=== PATIENT | male | born 1970 | race Caucasian/White ===

== ENCOUNTER 2018-11-24 21:06 | Inpatient (IN) | payer OTHER ==
[~2018-11-24] VITALS: Ht 165.1 cm; Wt 108.9 kg
[2018-11-24 21:31] VITALS: BP 147/83
[2018-11-24] MEDS ORDERED: Z GUARD REMEDY 2 OZ OINT TP PRN ×2 (22:00→22:30)
[2018-11-24] MEDS ORDERED: MAG HYDROX/AL HYDROX/SIMETH 30 ML UDC PO PRN (22:00)
[2018-11-24] MEDS ORDERED: ONDANSETRON HCL/PF 4 MG/2 ML VIAL IVP PRN (22:00)
[2018-11-24] MEDS ORDERED: MAGNESIUM HYDROXIDE 30 ML UDC PO PRN (22:00)
[2018-11-24] MEDS ORDERED: ACETAMINOPHEN 325 MG TABLET PO PRN (22:00)
[2018-11-24 22:38] LABS: BASOPHILS # (AUTO) 0.1 /CMM (0.0-0.2); BASOPHILS % (AUTO) 1.5 % (0.0-2.0); EOSINOPHILS % (AUTO) 1.5 % (0.0-6.0); HEMATOCRIT 50 % (39-51); HEMOGLOBIN 16.6 g/dL (13.5-17.5); LYMPHOCYTES # (AUTO) 1.9 /CMM (0.8-4.8); LYMPHOCYTES % (AUTO) 27.6 % (20.0-44.0); MEAN CORPUSCULAR HGB CONC 33 g/dl (31.0-36.0); MEAN CORPUSCULAR VOLUME 98 fL (80-96); MONOCYTES # (AUTO) 0.7 /CMM (0.1-1.30); MONOCYTES % (AUTO) 10.2 % (2.0-12.0); NEUTROPHILS # (AUTO) 4.1 /CMM (1.8-8.9); NEUTROPHILS % (AUTO) 59.2 % (43.0-81.0); PLATELET COUNT (AUTO) 164 /CMM (150-450); RED BLOOD CELL COUNT(AUTO) 5.07 MIL/uL (4.5-6.0)
--- NOTE | 2018-11-24 22:42 | NUR ---
CABLE TELEVISION LINE TECHNICIAN NOTES RECEIVED PT FROM EMT. A/O X 4. ON NASAL CANNULA 4LPM NO RESPIRATORY DISTRESS NOTED. IV ACCESS ON LAC G20 PATENT AND INTACT . BELONGING LIST CHECK DONE. SKIN ASSESSMENT DONE, PICTURE PLACED IN CHART. HEAD OF BED ELEVATED. SIDE RAILS UP. CALL LIGHT WITHIN REACH. BED ALARM ON. WILL CONTINUE TO MONITOR PT CLOSELY.
[2018-11-24 22:48] LABS: CREATININE 0.9 mg/dL (0.6-1.3); MAGNESIUM 1.6 mg/dL (1.8-2.4); PHOSPHORUS 3.1 mg/dL (2.5-4.9)
[2018-11-24] MEDS: CHLORDIAZEPOXIDE HCL 25 MG CAPSULE PO SCH (23:01)
[2018-11-24] MEDS: IV NS 0.9% 1,000 ML IV PRN (23:01)
[2018-11-24 23:04] LABS: POTASSIUM 2.8 mmol/L (3.5-5.1)
--- NOTE | 2018-11-24 23:47 | NUR ---
teletypist notes called pharmacy to verify orders.
[2018-11-24] MEDS: POTASSIUM CHLORIDE 20 MEQ TAB.PRT.SR PO SCH (23:58)
[2018-11-25] MEDS: Magnesium 1GM/D5W 100ML PREMIX 100 ML IV SCH ×2 (00:01→00:49)
[2018-11-25] MEDS: POTASSIUM CL. PREMIX PERIPHER. 50 ML IV SCH ×5 (00:02→03:33)
[2018-11-25 04:00] VITALS: BP 142/71
[2018-11-25 06:16] LABS: BASOPHILS # (AUTO) 0.1 /CMM (0.0-0.2); BASOPHILS % (AUTO) 1.3 % (0.0-2.0); EOSINOPHILS % (AUTO) 2.2 % (0.0-6.0); HEMATOCRIT 47 % (39-51); HEMOGLOBIN 15.6 g/dL (13.5-17.5); LYMPHOCYTES # (AUTO) 1.3 /CMM (0.8-4.8); MEAN CORPUSCULAR HGB CONC 33 g/dl (31.0-36.0); MEAN CORPUSCULAR VOLUME 100 fL (80-96); MONOCYTES # (AUTO) 0.6 /CMM (0.1-1.30); MONOCYTES % (AUTO) 10.6 % (2.0-12.0); NEUTROPHILS % (AUTO) 64.9 % (43.0-81.0); PLATELET COUNT (AUTO) 160 /CMM (150-450); WHITE BLOOD COUNT (AUTO) 6.1 K/uL (4.3-11.0)
[2018-11-25 06:38] LABS: CALCIUM, SERUM 9.3 mg/dL (8.5-10.1); CREATININE 0.8 mg/dL (0.6-1.3); MAGNESIUM 2.1 mg/dL (1.8-2.4); PHOSPHORUS 4.1 mg/dL (2.5-4.9); POTASSIUM 4.2 mmol/L (3.5-5.1)
--- NOTE | 2018-11-25 07:14 | NUR ---
HEALTH INFORMATION MANAGER NOTES NO ACUTE CHANGES NOTED DURING THE SHIFT. NO RESPIRATORY DISTRESS NOTED. PROVIDED COMFORT AND SAFETY. WILL ENDORSE TO THE AM NURSE FOR CONTINUITY OF CARE.
--- NOTE | 2018-11-25 07:30 | NUR ---
RN NOTE: RECEIVED PATIENT IN BED, AWAKE, ALERT AND VERBALLY RESPONSIVE. RESPIRATION EVEN AND UNLABORED SATURATING 98% IN ROOM AIR. PATIENT VERBALIZED THAT HE NEEDED TO HAVE HIS PAIN MEDICATION (CYMBALTA) AND BP MEDICATION. PATIENT WAS SEEN BY THE [facility] NURSE MICHAEL AND ALL THE HOME MEDICATIONS WERE LISTED ON THE PATIENT'S CHART. WILL INFORM THE ROUNDING DOCTOR ABOUT IT. BED ON LOWEST POSITION. ON FREQUENT NEUROLOGICAL CHECKS. AFEBRILE. SKIN WARM TO TOUCH. (L) AND (R) AC 20 G IV SITE WAS NOTED PATENT AND INTACT. (L) AC IV LINE WAS INFUSING NS @100ML/HR WITH GOOD BLOOD RETURN. ON SEIZURE PRECAUTION WITH PADDED SIDE RAIL. CALL LIGHT WITHIN REACH. NEEDS ANTICIPATED.
[2018-11-25] MEDS ORDERED: GABA-534 PO (07:46)
[2018-11-25] MEDS ORDERED: CYCL10TA9 PO (07:46)
[2018-11-25] MEDS ORDERED: HYDR25TA4 PO (07:46)
[2018-11-25] MEDS ORDERED: DULO60CA64 PO (07:46)
[2018-11-25] MEDS ORDERED: BUPR1FIL3 SL (07:46)
[2018-11-25 08:00] VITALS: BP 159/100
[2018-11-25] MEDS: PANTOPRAZOLE 40 MG TABLET.DR PO SCH (08:12)
[2018-11-25] MEDS: POTASSIUM CHLORIDE 20 MEQ TAB.PRT.SR PO SCH (08:12)
[2018-11-25] MEDS: CHLORDIAZEPOXIDE HCL 25 MG CAPSULE PO SCH ×2 (08:13→16:21)
[2018-11-25 08:30] VITALS: BP 139/93
[2018-11-25] MEDS ORDERED: THIAMINE HCL 100 MG TABLET PO SCH (09:00)
[2018-11-25] MEDS ORDERED: NICOTINE PATCH (21MG) 21 MG PATCH.TD24 TD SCH (09:00)
[2018-11-25] MEDS ORDERED: FOLIC ACID 1 MG TABLET PO SCH (09:00)
[2018-11-25] MEDS ORDERED: MULTIVITAMINS,THERAGRAN 1 UDTAB TABLET PO SCH (09:00)
--- NOTE | 2018-11-25 11:10 | NUR ---
RN NOTE: ALONDRA GUSTAFSON NP WAS PRESENT AT THE BEDSIDE AND SPOKE WITH THE PATIENT REGARDING THE PLAN OF CARE.
[2018-11-25 12:00] VITALS: BP 160/90
[2018-11-25] MEDS: IV NS 0.9% 1,000 ML IV PRN (12:22)
[2018-11-25] MEDS: HYDROCODONE/APAP 5/325MG 1 EACH TABLET PO PRN (12:41)
[2018-11-25] MEDS: CYCLOBENZAPRINE 10 MG TABLET PO PRN ×2 (14:12→22:13)
--- NOTE | 2018-11-25 15:34 | NUR ---
RN NOTE: CALLED AND SPOKE WITH ALONDRA GUSTAFSON NP REGARDING THE PATIENT'S DEMAND OF MORE PAIN MEDICATION. PATIENT GAVE A LIST OF ALL THE OTHER PAIN MEDICATION THAT HE TAKES AT HOME. PER ALONDRA GUSTAFSON NP HE ORDERED IBUPROFEN AND LIDOCAINE PATCH. ORDER NOTED AND CARRIED OUT. PATIENT MADE AWARE OF THE CURRENT ORDERS AND STILL UPSET.
--- NOTE | 2018-11-25 15:40 | NUR ---
RN NOTE: DISCUSSED WITH ALONDRA GUSTAFSON NP REGARDING THE PATIENT'S ELEVATED BLOOD PRESSURE AND PER POULTICE MACHINE OPERATOR, THE HYDRALAZINE FROM THE PATIENT'S HOME MEDICATION WAS HELD. PER POULTICE MACHINE OPERATOR, HE WANTED TO MANAGE THE PATIENT'S PAIN AT THIS TIME THEN HE WILL RESUME THE BP MEDICATION. PATIENT WAS MADE AWARE.
[2018-11-25 16:00] VITALS: BP 151/93
[2018-11-25] MEDS ORDERED: LIDOCAINE 5% (PATCH) 1 EA PATCH TP SCH (16:00)
[2018-11-25] MEDS ORDERED: GABAPENTIN 300 MG CAPSULE PO SCH (17:00)
[2018-11-25] MEDS ORDERED: DULOXETINE HCL 30 MG CAPSULE.DR PO SCH (17:00)
[2018-11-25] MEDS: IBUPROFEN 400 MG TABLET PO PRN (18:44)
--- NOTE | 2018-11-25 19:24 | NUR ---
RN NOTE: BEDSIDE REPORT WAS GIVEN TO PM SHIFT NURSE FOR CONTINUITY OF CARE. PATIENT WAS AWAKE, ALERT AND VERBALLY RESPONSIVE. IBUPROFEN WAS GIVEN PER PATIENT'S REQUEST AND WAS ENDORSED TO PM SHIFT NURSE TO MONITOR PAIN.
--- NOTE | 2018-11-25 19:40 | NUR ---
INSPECTOR FUEL HOSE NOTES RECEIVED PT ON BED. A/O X 4. ON TELE MONITOR SR -ST . IV ACCESS ON LAC G 20 WITH NS RUNNING @ 100CC/HR PATENT AND INTACT. ON NASAL CANNULA 3LPM NO RESPIRATORY DISTRESS NOTED. HEAD OF BED ELEVATED. SIDE RAILS UP. CALL LIGHT WITHIN REACH. BED IN LOW AND LOCKED POSITION. WILL MONITOR PT CLOSELY.
[2018-11-25 20:00] VITALS: BP 137/88
[2018-11-26] VITALS: BP 148/102
--- NOTE | 2018-11-26 | NUR ---
ENGINE DESIGNER NOTES PT ANXIOUS, AGITATED, WALKING IN THE HALLWAY. ATIVAN PRN GIVEN .
[2018-11-26] MEDS: LORAZEPAM 1 MG TABLET PO PRN ×2 (00:20→06:12)
--- NOTE | 2018-11-26 01:00 | NUR ---
teletype adjuster notes pt refusing ivf fluid. per pt he does not need it. explained risk and benefits. pt still refused.
[2018-11-26] MEDS: HYDROCODONE/APAP 5/325MG 1 EACH TABLET PO PRN (03:48)
[2018-11-26 04:00] VITALS: BP_SYST 155; BP_DIAS 112; BP_DIAS 92
[2018-11-26 06:51] LABS: BASOPHILS # (AUTO) 0.1 /CMM (0.0-0.2); BASOPHILS % (AUTO) 2.7 % (0.0-2.0); EOSINOPHILS % (AUTO) 2.7 % (0.0-6.0); HEMATOCRIT 42 % (39-51); HEMOGLOBIN 13.9 g/dL (13.5-17.5); LYMPHOCYTES # (AUTO) 1.1 /CMM (0.8-4.8); LYMPHOCYTES % (AUTO) 22.1 % (20.0-44.0); MEAN CORPUSCULAR HGB CONC 33 g/dl (31.0-36.0); MEAN CORPUSCULAR VOLUME 100 fL (80-96); MONOCYTES # (AUTO) 0.6 /CMM (0.1-1.30); MONOCYTES % (AUTO) 11.3 % (2.0-12.0); NEUTROPHILS % (AUTO) 61.2 % (43.0-81.0); PLATELET COUNT (AUTO) 149 /CMM (150-450); RED BLOOD CELL COUNT(AUTO) 4.21 MIL/uL (4.5-6.0); WHITE BLOOD COUNT (AUTO) 4.9 K/uL (4.3-11.0)
[2018-11-26 06:56] LABS: CALCIUM, SERUM 9.3 mg/dL (8.5-10.1); CREATININE 0.6 mg/dL (0.6-1.3); POTASSIUM 3.9 mmol/L (3.5-5.1)
--- NOTE | 2018-11-26 07:15 | NUR ---
MANAGER FIELD SALES NOTES NO ACUTE CHANGES NOTED DURING THE SHIFT. NO RESPIRATORY DISTRESS NOTED. PROVIDED COMFORT AND SAFETY. WILL ENDORSE TO THE AM NURSE FOR CONTINUITY OF CARE.
[2018-11-26] MEDS: IBUPROFEN 400 MG TABLET PO PRN (07:20)
[2018-11-26] MEDS: PANTOPRAZOLE 40 MG TABLET.DR PO SCH (07:20)
--- NOTE | 2018-11-26 07:28 | NUR ---
RN OPENING NOTES RECEIVED PATIENT AMBULATING AROUND THE HALLS. HE IS AOX4, SLIGHTLY ANXIOUS, VERBAL, AND AMBULATORY. HE IS ON RA, TOLERATING WELL, SHOWS NO S/SX OF RESP DISTRESS OR SOB. SKIN IS NOT INTACT, HE HAS MULTIPLE SCABS ON BLE AND RIGHT HAND. HE IS ON A REGULAR DIET, TOLERATING WELL. SAFETY MEASURES HAVE BEEN IMPLEMENTED, CALL LIGHT IS WITHIN REACH, BED IS IN LOWEST AND LOCKED POSITION, SIDE RAILS UP X2, WILL CONTINUE TO MONITOR FOR ANY CHANGES.
--- NOTE | 2018-11-26 09:53 | NUR ---
Social service consult requested by AIMEE Meneses for homelessness and fdc. Pt. is a 48 year old male who was admitted to [facility] for alcohol withdrawal and seizure. Pt. is an alcoholic and drinks Vodka per ED physician report. SW attempted to see the pt. however was informed by ROSIE Rosado that pt. left AMA this morning.
--- NOTE | 2018-11-26 15:04 | NUR ---
pt left the facility AWOL, did not sign AMA form or let me remove IV. Since the beginning of the shift, the pt had been restless and anxious. He was ambulating the halls and left the unit 2 times. He told me that the medications we were giving him for his pain were not strong enough. I assured him that once his doctor comes in to do his rounds I would try to get his dose adjusted. He later began demanding to let him go outside to smoke, Patient did not have his own supply of cigarettes nor glass mold repairer. I told him I can give him his nicotine patch at 8 am the earliest. When I began to pass his morning medications, he assumed I was just going to give it to him. I reassured him that I have to watch him take each and every medicine. Once he heard that, he began to get upset because he thought I was giving him the medications and he was free to leave the facility. He began to walk towards the exit and I asked him to sign the AMA form and to let me remove the IV line if he was leaving. He completely disregarded what I said and left the facility. I called security and went outside with them to try to find him. We found him on the sidewalk roughly a block away. I asked him if he is willing to walk back with us to remove the IV site. Instead, he grabbed the IV and pulled it off on the sidewalk. Blood started to drip down his arm. I asked him to come back so I can at least bandage him but he refused. He stated that his father was to pick him up. He pulled out his IV on the street and did not sign the AMA form. When I received report from nightshift rn, I was told he was found outside on the street at 2 am.
== END 2018-11-26 08:15 | disposition left against medical advice (07) | DRG 770 ==
LOC: TELE1 21:06
PROVIDERS: ADMIT Internal Medicine; ATTEND Nurse Practitioner Acute Care
DX: F10.239 Alcohol dependence with withdrawal, unspecified (principal); E83.42 Hypomagnesemia; R56.9 Unspecified convulsions; E87.1 Hypo-osmolality and hyponatremia; E86.1 Hypovolemia; E87.6 Hypokalemia; F17.200 Nicotine dependence, unspecified, uncomplicated; F19.11 Other psychoactive substance abuse, in remission; Y90.9 Presence of alcohol in blood, level not specified; T14.8XXA Other injury of unspecified body region, initial encounter; X58.XXXA Exposure to other specified factors, initial encounter; Y92.9 Unspecified place or not applicable; G62.9 Polyneuropathy, unspecified; G89.29 Other chronic pain
CPT/HCPCS: 36415; 80048-TC; 83735-TC; 84100-TC; 85025-TC; 87081-TC; A6403; G0378; J3475; J3480; J7030